=== PATIENT | female | born 1955 | race Caucasian/White ===

== ENCOUNTER 2023-06-17 06:36 | Outpatient (CLI) | payer MEDICARE, OTHER, SELFPAY ==
--- NOTE | ~2023-06-17 | MR_ITS ---
EXAMINATION: MR knee LT wo con DATE: 06/17/2023 07:44 INDICATION: Chronic left knee pain TECHNIQUE: Magnetic resonance imaging (MRI) of the left knee was performed without intravenous contra st. Sequences included coronal PD-weighted FSE, coronal PD-weighted FS FSE, sagittal T2-weighted FSE , sagittal PD-weighted FS FSE and axial PD weighted fat saturated FSE. COMPARISON: None. FINDINGS: Medial compartment: Complex tear at the posterior horn which the medial meniscus extends anteriorly into the medially ext ruded meniscal body as a longitudinal horizontal tear extending to the inferior articular surface. Ad ditional complex tear at the anterior horn. There is extensive full/near full-thickness cartilage los s with underlying mild subarticular edema-like signal change along the anterior to central weightbear ing medial femoral condyle and the anterior half of the medial tibial plateau. Lateral compartment: Lateral meniscus is normal. Partial-thickness chondral ulceration and deep fissuring with minimal und erlying subarticular edema-like signal change at the posterior and lateral aspects of the lateral tib ial plateau. There is mild partial-thickness cartilage loss with smooth chondral surface and without degenerative subchondral changes along the anterior weightbearing lateral femoral condyle. Patellofemoral compartment: Diffuse mild partial-thickness patellar cartilage loss most prominent and with deep fissuring but wit hout degenerative subchondral changes at the caudal aspect of the lateral patellar facet. Cartilage l oss with small region of underlying subarticular edema-like signal change at the superomedial aspect of the medial trochlea. Remainder of the trochlear cartilage appears relatively preserved. Ligaments and tendons: Anterior and posterior cruciate ligaments are normal. The medial collateral ligament and fibular rj ateral ligament complex are normal. Mild tendinopathy without discrete tear at the distal quadriceps and distal patellar tendons. The visualized medial and lateral hamstring tendons as well as the iliot ibial band are normal. Fluid: Small left knee joint effusion with mild synovitis at the suprapatellar pouch. No loose osteochondral bodies identified. There is extension of a small amount of fluid along the popliteal recess. Osseous/other: Bone alignment is normal. No fracture or pathologic marrow replacing process. IMPRESSION: 1. Complex medial meniscal tear with severe osteoarthritis with and extensive high-grade chondromalac ia in the medial compartment. 2. Mild osteoarthritis with more focal smaller regions of moderate and high-grade chondromalacia in t he lateral and patellofemoral compartments. Reviewed, dictated and finalized at location A. IMPRESSION: 1. Complex medial meniscal tear with severe osteoarthritis with and extensive h igh-grade chondromalacia in the medial compartment. 2. Mild osteoarthritis with more focal smaller regions of moderate and high-gra de chondromalacia in the lateral and patellofemoral compartments.
--- NOTE | ~2023-06-17 | MR_ITS ---
EXAMINATION: MR knee RT wo con DATE: 06/17/2023 07:44 INDICATION: Chronic right knee pain TECHNIQUE: Magnetic resonance imaging (MRI) of the right knee was performed without intravenous contr ast. Sequences included coronal PD-weighted FSE, coronal PD-weighted FS FSE, sagittal T2-weighted FS E, sagittal PD-weighted FS FSE and axial PD weighted fat saturated FSE. COMPARISON: None. FINDINGS: Medial compartment: There is medial extrusion of the medial meniscal body. Longitudinal horizontal tear extending to the inferior articular surface of the posterior horn and body and with more complex appearance in the ant erior horn. Small regions of full/near full-thickness chondral ulceration at the anterior weightbeari ng medial femoral condyle with minimal underlying subarticular edema-like signal change. Additional j uxtaposed deep chondral ulceration without degenerative subchondral changes at the anterior weightbea ring medial femoral condyle. Less severe partial thickness cartilage loss at the more posterior media l tibial plateau and central weightbearing medial femoral condyle. Lateral compartment: Lateral meniscus is normal. Deep chondral ulceration with tiny central subchondral osteophytes at the posterior medial aspect of the lateral tibial plateau. Mild partial-thickness cartilage loss with sm ooth chondral surface along the anterior to central weightbearing lateral femoral condyle. Patellofemoral compartment: Partial-thickness cartilage loss involving greater than 50% the cartilage thickness and with mild cho ndral surface regularity at the patellar apical ridge and medial facet, the latter with a few tiny fo ci of underlying subarticular edema-like signal change. Similar deep cartilage loss at the medial tro chlea which . Full/near full-thickness along the cephalad margin with minimal underlying subarticular edema-like signal change. Additional mild partial-thickness cartilage loss with smooth chondral surf leonela at the lateral trochlea. Ligaments and tendons: Anterior and posterior cruciate ligaments are normal. The medial collateral ligament and fibular rj ateral ligament complex are normal. Mild tendinopathy without discrete tear at the distalmost quadric eps tendon and at the distal patellar tendon. The visualized medial and lateral hamstring tendons as well as the iliotibial band are normal. Fluid: Physiologic amount of fluid in the joint space. No loose osteochondral bodies identified. Small Hickman 's cyst. Osseous/other: Bone alignment is normal. No fracture or pathologic marrow replacing process. IMPRESSION: 1. Medial meniscal tear. 2. Tricompartmental osteoarthritis, moderate severity at the medial and patellofemoral compartment an d mild in the lateral compartment, each with regions of moderate and high-grade chondromalacia. 2. Small Hickman's cyst. Reviewed, dictated and finalized at location A. IMPRESSION: 1. Medial meniscal tear. 2. Tricompartmental osteoarthritis, moderate severity at the medial and patello femoral compartment and mild in the lateral compartment, each with regions of m oderate and high-grade chondromalacia. 2. Small Hickman's cyst.
== END 2023-06-17 06:37 | disposition home or self-care (01) ==
PROVIDERS: Visit Provider Nurse Practitioner
DX: M25.561 Pain in right knee (principal); M25.562 Pain in left knee; G89.29 Other chronic pain; S83.241A Other tear of medial meniscus, current injury, right knee, initial encounter; M94.261 Chondromalacia, right knee; M71.21 Synovial cyst of popliteal space [Baker], right knee; S83.232A Complex tear of medial meniscus, current injury, left knee, initial encounter; M17.0 Bilateral primary osteoarthritis of knee; M94.262 Chondromalacia, left knee
CPT/HCPCS: 73721